=== PATIENT | female | born 1990 | race Caucasian/White ===

== ENCOUNTER 2018-12-09 13:43 | Emergency (ER) | payer MEDICAID ==
[~2018-12-09] VITALS: Ht 149.9 cm; Wt 61.1 kg
[2018-12-09 13:51] VITALS: BP 143/81; PULSE 72; RESP 16; Ht 149.9 cm; Wt 61.1 kg
--- NOTE | 2018-12-09 13:57 | EN ---
Date/Time of Note Date/Time of Note DATE: 12/09/18 TIME: 13:52 ER Progress Note [age]OU-3-wyon-old female approximately 10 weeks . Complains of lower abdominal pain, slight vaginal spotting. No SIRS criteria. Appropriate for ED 2. DAVID JJ MD Dec 09, 2018 13:57
[2018-12-09] MEDS ORDERED: NAPR-985 PO (15:35)
--- NOTE | 2018-12-09 15:49 | ERD ---
ER Documentation Chief Complaint Chief Complaint VAG BLEED , PELVIC PAIN , PREG 10 WEEKS HPI 28-year-old female presenting with vaginal bleeding and pelvic pain. Patient believes she is about 10 weeks . G4, . Patient is having bleeding but no clots. Patient LNMP September 24. Medical history denies. NKDA. Surgical history denies. Social history denies ROS All systems reviewed and are negative except as per history of present illness. Medications Home Meds Active Scripts Naproxen* (Naprosyn*) 500 Mg Tablet, 500 MG PO BID PRN for PAIN AND/OR INFLAMMATION, #30 TAB Prov:CARROLL CARLSON PA-C 12/09/18 Allergies Allergies: Coded Allergies: No Known Allergy (Unverified , 12/09/18) PMhx/Soc Medical and Surgical Hx: pt denies Medical Hx, pt denies Surgical Hx Hx Alcohol Use: No Hx Substance Use: No Hx Tobacco Use: No Smoking Status: Never smoker FmHx Family History: No diabetes, No coronary disease, No other Physical Exam Vitals Vital Signs Date Temp Pulse Resp B/P (MAP) Pulse Ox O2 O2 Flow FiO2 Time Delivery Rate 12/09/18 98.8 72 16 143/81 98 13:51 (101) Physical Exam GENERAL: The patient is well-appearing, well-nourished, in no acute distress HEENT: Atraumatic. Conjunctivae are pink. Pupils equal, round, and reactive to light. There is no scleral icterus. Tympanic membranes clear bilaterally. Oropharynx clear. CHEST: Clear to auscultation bilaterally. There are no rales, wheezes or rhonchi. HEART: Regular rate and rhythm. No murmurs, clicks, rubs or gallops. ABDOMEN: Normal active bowel sounds. No distention. No organomegaly. Generalized lower pelvic pressure with palpation. BACK: No midline or flank tenderness. Result Diagram: 12/09/18 1445 Results 24 hrs Laboratory Tests Test 12/09/18 14:45 12/09/18 14:46 12/09/18 14:52 White Blood Count 8.3 10^3/ul Red Blood Count 4.83 10^6/ul Hemoglobin 14.7 g/dl Hematocrit 43.4 % Mean Corpuscular Volume 89.9 fl Mean Corpuscular Hemoglobin 30.4 pg Mean Corpuscular 33.9 g/dl Hemoglobin Concent Red Cell Distribution Width 11.9 % Platelet Count 345 10^3/UL Mean Platelet Volume 8.8 fl Immature Granulocytes % 0.200 % Neutrophils % 59.6 % Lymphocytes % 33.9 % Monocytes % 5.1 % Eosinophils % 0.8 % Basophils % 0.4 % Nucleated Red Blood Cells % 0.0 /100WBC Immature Granulocytes # 0.020 10^3/ul Neutrophils # 5.0 10^3/ul Lymphocytes # 2.8 10^3/ul Monocytes # 0.4 10^3/ul Eosinophils # 0.1 10^3/ul Basophils # 0.0 10^3/ul Nucleated Red Blood Cells # 0.0 10^3/ul Beta HCG, Quantitative < 2.4 mIU/ml Urine Color YELLOW Urine Clarity CLOUDY Urine pH 6.0 Urine Specific B[place] 1.021 Urine Ketones NEGATIVE mg/dL Urine Nitrite NEGATIVE mg/dL Urine Bilirubin NEGATIVE mg/dL Urine Urobilinogen NEGATIVE mg/dL Urine Leukocyte Esterase TRACE Danny/ul Urine Microscopic RBC > 182 /HPF Urine Microscopic WBC 22 /HPF Urine Squamous Epithelial Cells MODERATE /HPF Urine Bacteria FEW /HPF Urine Hemoglobin 3+ mg/dL Urine Glucose NEGATIVE mg/dL Urine Total Protein 1+ mg/dl POC Beta HCG, Qualitative NEGATIVE Procedures/MDM DIAGNOSTIC IMAGING REPORT Patient: ARIES BAI : 1990 Age: 28 Sex: F MR #: [id number] DOS: 12/09/18 1429 Ordering MD: SELENE CARLSON PA-C Location: E Room/Bed: PROCEDURE: US Pelvis. CLINICAL INDICATION: Vaginal bleeding TECHNIQUE: Multiple sonographic images of the pelvis were obtained utilizing transabdominal and endovaginal technique. The images were reviewed on a PACS workstation. COMPARISON: None. FINDINGS: The uterus is normal in size with a normal appearance of the myometrium. The uterus measures 8.3 x 4.8 x 5.4 cm. The endometrial stripe is homogeneous in appearance and has the thickness of 6 mm. There is no intrauterine gestation noted. The ovaries are normal in size and echogenicity. Normal Doppler flow is identified in both ovaries. The right ovary measures 2.2 x 1.1 x 1.5 cm. The left ovary measures 2.6 x 1.3 x 1.5 cm. No free fluid is present within the pelvis. RPTAT: AA IMPRESSION: Unremarkable pelvic ultrasound. MDM: 28-year-old female presenting with vaginal bleeding. I have low suspicion for as patient's urine is negative. I have low suspicion for pelvic emergency. Patient's blood work is stable and urine is negative. Patient is discharged with strict ER precautions and told to follow-up with primary care within 1 to 2 days for close evaluation. Patient is told symptoms change or worsen to return immediately to the ER. All questions answered at discharge Departure Diagnosis: Primary Impression: Normal menstrual period Condition: Stable Patient Instructions: Menorrhagia, Pelvic Pain, Unknown Cause Referrals: [employer] [place] [address] [facility] [address] [place] [address] OFFICE FAX [facility] [address] [place] [address] [address] [address] [place] [address] [address]UT[place], [facility] [address] [facility] [facility] [address] [address] [facility] [address] [place] [address] [facility] [address] [place] [address] [facility] [id number] - [address] [facility] [address] [address] [address] [facility]. [address], [facility] [address] [address] [address] [place], [place] [address] Additional Instructions: FOLLOW UP WITH YOUR PRIMARY CARE PHYSICIAN TOMORROW.Return to this facility if you are not improving as expected. CARROLL CARLSON PA-C Dec 09, 2018 15:49
== END 2018-12-09 15:44 | disposition home or self-care (01) ==
LOC: FTE 13:43
DX: N93.9 Abnormal uterine and vaginal bleeding, unspecified (principal); R10.2 Pelvic and perineal pain; Z32.02 Encounter for pregnancy test, result negative
CPT/HCPCS: 36415; 76801; 76817; 81001; 81025; 84702; 85025; 86900; 86901; Z7502